=== PATIENT | male | born 1985 | race Caucasian/White ===

== ENCOUNTER 2017-02-13 03:01 | Emergency (ER) | payer MEDICAID ==
[~2017-02-13] VITALS: Ht 157.5 cm; Wt 62.0 kg
[2017-02-13] MEDS: ONDANSETRON HCL 4MG/2ML VIAL IV STA (03:28)
[2017-02-13] MEDS: SODIUM CHLORIDE 0.9% 1,000 ML IV ONE (03:28)
[2017-02-13] MEDS: KETOROLAC 30MG/ML VIAL IV STA (03:28)
[2017-02-13 03:53] LABS: BASOPHILS % 0.8 % (0.0-2.0); HEMATOCRIT. 41.7 % (42.0-52.0); HEMOGLOBIN. 14.2 g/dL (14.0-18.0); LYMPHOCYTES % 23.9 % (20.0-50.0); MEAN CORPUSCULAR HEMOGLOBIN 29.5 pg (28.0-32.0); MEAN CORPUSCULAR VOLUME 86.6 fL (80.0-94.0); MONOCYTES % 7.8 % (2.0-8.0); NEUTROPHILS % 61.5 % (40.0-76.0); PLATELET 236 x1000/uL (130-400); RED BLOOD CELL COUNT 4.82 mill/uL (4.7-6.1); RED CELL DISTRIBUTION WIDTH 13.5 % (11.6-14.6)
[2017-02-13 04:02] LABS: D-DIMER 0.29 mg/L FEU (<0.50); PROTHROMBIN TIME 10.5 sec (9.4-11.6)
[2017-02-13 04:11] LABS: CARBON DIOXIDE 24 mEq/L (21-32); CHLORIDE 111 mEq/L (98-107); ETHANOL BLOOD 206 mg/dL; TROPONIN I < 0.02 ng/mL (0.00-0.04)
[2017-02-13] MEDS: NITROGLYCERIN OINT 1GM/INCH UDPKT TD ONE (04:29)
[2017-02-13] MEDS: ASPIRIN 81MG TABLET PO ONE (04:29)
[2017-02-13] MEDS: LORAZEPAM 2MG/ML CPJ IV ONE (04:30)
[2017-02-13 05:50] VITALS: BP 101/59
== END 2017-02-13 09:15 | disposition home or self-care (01) ==
LOC: ER 07:13
DX: R07.89 Other chest pain (principal); F10.10 Alcohol abuse, uncomplicated; F15.10 Other stimulant abuse, uncomplicated; F17.210 Nicotine dependence, cigarettes, uncomplicated; F12.10 Cannabis abuse, uncomplicated; Y90.7 Blood alcohol level of 200-239 mg/100 ml
CPT/HCPCS: 36415; 71010; 80053; 83605; 83690; 83880; 84484; 85025; 85379; 85610; 93005; 96361; 96374; 96375; 99285; G0482; J1885; J2060; J2405; J7030; Z7610

== ENCOUNTER 2017-02-13 06:49 | Emergency (ER) | payer MEDICAID ==
[~2017-02-13] VITALS: Ht 157.5 cm; Wt 62.0 kg
[2017-02-13 07:44] LABS: BASOPHILS % 0.5 % (0.0-2.0); EOSINOPHILS % 6.6 % (0.0-5.0); HEMATOCRIT. 40.3 % (42.0-52.0); HEMOGLOBIN. 13.8 g/dL (14.0-18.0); LYMPHOCYTES % 25.8 % (20.0-50.0); MEAN CORPUSCULAR HEMOGLOBIN 29.9 pg (28.0-32.0); MEAN PLATELET VOLUME 7.1 fl (7.4-10.4); MONOCYTES % 7.3 % (2.0-8.0); NEUTROPHILS % 59.8 % (40.0-76.0); PLATELET 242 x1000/uL (130-400); RED BLOOD CELL COUNT 4.63 mill/uL (4.7-6.1); RED CELL DISTRIBUTION WIDTH 13.5 % (11.6-14.6)
[2017-02-13] MEDS: SODIUM CHLORIDE 0.9% 1,000 ML IV ONE (07:46)
[2017-02-13] MEDS: ONDANSETRON HCL 4MG/2ML VIAL IV STA (07:46)
[2017-02-13 07:48] LABS: PARTIAL THROMBOPLASTIN TIME 27.9 sec (23.4-31.0); PROTHROMBIN TIME 10.5 sec (9.4-11.6)
[2017-02-13] MEDS: MORPHINE SULFATE 4 MG/ML CPJ (NOT FOR IM USE) IV STA (07:58)
[2017-02-13 08:00] LABS: CARBON DIOXIDE 22 mEq/L (21-32); CHLORIDE 112 mEq/L (98-107); ETHANOL BLOOD 113 mg/dL; TROPONIN I < 0.02 ng/mL (0.00-0.04)
[2017-02-13 09:36] LABS: CLARITY URINE CLEAR (CLEAR); COLOR URINE YELLOW (YELLOW); GLUCOSE URINE NEGATIVE (NEGATIVE); KETONES URINE NEGATIVE (NEGATIVE); LEUKOCYTE ESTERASE URINE NEGATIVE (NEGATIVE); NITRITE URINE NEGATIVE (NEGATIVE); OCCULT BLOOD URINE 1+ (NEGATIVE); PROTEIN URINE NEGATIVE (NEGATIVE); SPECIFIC GRAVITY URINE 1.023 (1.005-1.030); UROBILINOGEN URINE 0.2 E.U./dL (0.2-1.0)
[2017-02-13 09:56] LABS: *AMPHETAMINES SCREEN URINE PRESUMTIVE POSITIVE (NEGATIVE); *BARBITURATES SCREEN URINE NEGATIVE (NEGATIVE); *BENZODIAZEPINES SCREEN URINE NEGATIVE (NEGATIVE); *COCAINE SCREEN URINE NEGATIVE (NEGATIVE); CANNABINOID URINE SCREEN PRESUMTIVE POSITIVE (NEGATIVE); METHADONE URINE SCREEN NEGATIVE (NEGATIVE); OPIATES URINE SCREEN PRESUMTIVE POSITIVE (NEGATIVE); PHENCYCLIDINE URINE SCREEN NEGATIVE (NEGATIVE)
[2017-02-13 10:30] VITALS: BP 117/79
[2017-02-13] MEDS: HYDROCODONE/ACETAMINOPHEN 5/325MG TABLET PO ONE (10:30)
== END 2017-02-13 11:00 | disposition short-term general hospital (02) ==
LOC: ER 06:49
DX: S02.2XXA Fracture of nasal bones, initial encounter for closed fracture (principal); S00.512A Abrasion of oral cavity, initial encounter; S29.9XXA Unspecified injury of thorax, initial encounter; S09.90XA Unspecified injury of head, initial encounter; F10.129 Alcohol abuse with intoxication, unspecified; F15.10 Other stimulant abuse, uncomplicated; F17.210 Nicotine dependence, cigarettes, uncomplicated; Y90.5 Blood alcohol level of 100-119 mg/100 ml; F12.129 Cannabis abuse with intoxication, unspecified; Y04.0XXA Assault by unarmed brawl or fight, initial encounter; Y93.89 Activity, other specified; Y92.488 Other paved roadways as the place of occurrence of the external cause
CPT/HCPCS: 36415; 70450; 70486; 71010; 71260; 72125; 73562; 74177; 80053; 80305; 81001; 83690; 84484; 85025; 85610; 85730; 86850; 86900; 86901; 93005; 96361; 96374; 96375; 99291; G0482; J2270; J2405; J7030

== ENCOUNTER 2018-07-02 22:00 | Emergency (ER) | payer MEDICAID ==
[~2018-07-02] VITALS: Ht 167.6 cm; Wt 65.0 kg
[2018-07-02 22:21] VITALS: BP 140/75
== END 2018-07-03 02:30 | disposition left against medical advice (07) ==
LOC: ER 22:00
DX: Z53.21 Procedure and treatment not carried out due to patient leaving prior to being seen by health care provider (principal)

== ENCOUNTER 2023-11-29 17:50 | Emergency (ER) | payer SELFPAY ==
[~2023-11-29] VITALS: Ht 170.2 cm; Wt 68.0 kg
[2023-11-29 18:24] VITALS: O2SAT 99
[2023-11-29 18:53] LABS: BASOPHILS % 0.5 % (0.0-2.0); EOSINOPHILS % 0.3 % (0.0-5.0); HEMATOCRIT. 48.1 % (42.0-52.0); HEMOGLOBIN. 16.5 g/dL (14.0-18.0); LYMPHOCYTES % 8.6 % (20.0-50.0); MEAN CORPUSCULAR HEMOGLOBIN 30.8 pg (28.0-32.0); MEAN CORPUSCULAR HGB CONC 34.3 g/dL (31.0-37.0); MEAN CORPUSCULAR VOLUME 89.9 fL (80.0-94.0); MEAN PLATELET VOLUME 7.9 fl (7.4-10.4); MONOCYTES % 4.2 % (2.0-8.0); NEUTROPHILS % 86.4 % (40.0-76.0); PLATELET 291 x1000/uL (130-400); RED BLOOD CELL COUNT 5.36 mill/uL (4.7-6.1); RED CELL DISTRIBUTION WIDTH 13.2 % (11.6-14.6); WHITE BLOOD COUNT 20.1 x1000/uL (4.5-11.0)
[2023-11-29 18:59] LABS: CHLORIDE 99 mEq/L (98-107); SODIUM 133 mEq/L (136-145)
[2023-11-29 19:00] LABS: CARBON DIOXIDE 26 mEq/L (21-32)
[2023-11-29 19:05] LABS: CREATININE 1.1 mg/dL (0.6-1.3); GLUCOSE 95 mg/dL (70-105); UREA NITROGEN BLOOD 9 mg/dL (9-23)
[2023-11-29] MEDS: CEFTRIAXONE SODIUM 500MG VIAL IM NR (20:00)
[2023-11-29] MEDS: HYDROCODONE/ACETAMINOPHEN 5/325MG TABLET PO ONE (20:05)
[2023-11-29] MEDS: PENICILLIN G BENZATHINE 2,400,000 UNITS/4ML SYR IM ONE (20:06)
[2023-11-29] MEDS ORDERED: HYDR-4001 MT ×2 (20:10)
[2023-11-29] MEDS ORDERED: LEVO-65 MT ×2 (20:10→20:13)
[2023-11-29 21:00] VITALS: BP 130/69; PULSE 98; RESP 16; TEMP 98.3
== END 2023-11-29 21:05 | disposition home or self-care (01) ==
LOC: ER 17:50
DX: N45.3 Epididymo-orchitis (principal); F15.90 Other stimulant use, unspecified, uncomplicated; F10.10 Alcohol abuse, uncomplicated; F12.90 Cannabis use, unspecified, uncomplicated
CPT/HCPCS: 99285; 93976; 80048; 85025; 36415; 76870; 96372; J0561; J0696

== ENCOUNTER 2024-04-08 18:37 | Emergency (ER) | payer MEDICAID ==
[~2024-04-08] VITALS: Ht 170.2 cm; Wt 65.0 kg
[~2024-04-08 18:37] MED LIST: HYDR-4001 MT; LEVO-65 MT
[2024-04-08 18:40] VITALS: O2SAT 99
[2024-04-08 18:47] VITALS: TEMP 36.94740
[2024-04-08] MEDS: LIDOCAINE HCL 1% 20ML VIAL INFIL ONE (23:10)
[2024-04-09] MEDS ORDERED: ACET-2708 MT (00:28)
[2024-04-09] MEDS ORDERED: CLIN-194 MT (00:32)
[2024-04-09 01:54] VITALS: BP 142/78; PULSE 88; RESP 17; O2SAT 98
== END 2024-04-09 01:55 | disposition home or self-care (01) ==
LOC: ER 18:37
DX: L02.31 Cutaneous abscess of buttock (principal); F12.10 Cannabis abuse, uncomplicated; Z79.899 Other long term (current) drug therapy
CPT/HCPCS: 10060; 99283; Z7610 ×2

== ENCOUNTER 2024-04-11 13:09 | Emergency (ER) | payer MEDICAID ==
[~2024-04-11] VITALS: Ht 170.2 cm; Wt 77.0 kg
[~2024-04-11 13:09] MED LIST changes: +ACET-2708 MT; +CLIN-194 MT
[2024-04-11 13:24] VITALS: O2SAT 99
[2024-04-11 14:47] VITALS: BP 132/84; PULSE 80; RESP 18; TEMP 36.89184; O2SAT 99
== END 2024-04-11 15:27 | disposition home or self-care (01) ==
LOC: ER 13:09
DX: L02.31 Cutaneous abscess of buttock (principal); Z48.00 Encounter for change or removal of nonsurgical wound dressing
CPT/HCPCS: 99281